=== PATIENT | female | born 1955 | race Caucasian/White ===

== ENCOUNTER 2016-10-29 08:05 | Outpatient (CLI) | payer BC | END 2016-10-29 17:53 | disposition home or self-care (01) | LOC: SUS 08:05 | PROVIDERS: ATTEND Internal Medicine | DX: M47.896 Other spondylosis, lumbar region (principal); N23 Unspecified renal colic | CPT/HCPCS: 72110; 76770 ==

== ENCOUNTER 2016-11-04 09:20 | Outpatient (CLI) | payer BC | END 2016-11-04 19:02 | disposition home or self-care (01) | LOC: SMA 09:20 | PROVIDERS: ATTEND Internal Medicine | DX: Z12.31 Encounter for screening mammogram for malignant neoplasm of breast (principal) | CPT/HCPCS: G0202 ==

== ENCOUNTER 2017-12-08 13:15 | Outpatient (CLI) | payer BC | END 2017-12-08 20:06 | disposition home or self-care (01) | LOC: SMA 13:15 | PROVIDERS: ATTEND Internal Medicine | DX: Z12.31 Encounter for screening mammogram for malignant neoplasm of breast (principal) | CPT/HCPCS: 77067 ==

== ENCOUNTER → 2019-12-02 | Outpatient (CLI) | payer BC | END | disposition home or self-care (01) | LOC: SMA 10:30 | PROVIDERS: ATTEND Internal Medicine | DX: Z12.31 Encounter for screening mammogram for malignant neoplasm of breast (principal) | CPT/HCPCS: 77067 ==

== ENCOUNTER 2021-03-12 08:56 | Outpatient (CLI) | payer BC | END 2021-03-12 19:55 | disposition home or self-care (01) | LOC: SMA 08:56 | PROVIDERS: ATTEND Internal Medicine | DX: Z12.31 Encounter for screening mammogram for malignant neoplasm of breast (principal) | CPT/HCPCS: 77067 ==

== ENCOUNTER 2022-06-11 08:11 | Outpatient (CLI) | payer OTHER, MEDICARE | END 2022-06-11 20:37 | disposition home or self-care (01) | LOC: SUS 08:11 | PROVIDERS: ATTEND Internal Medicine | DX: N20.0 Calculus of kidney (principal); K80.20 Calculus of gallbladder without cholecystitis without obstruction | CPT/HCPCS: 76700-TC ==

== ENCOUNTER 2023-04-17 10:41 | Outpatient (CLI) | payer OTHER, MEDICARE | END 2023-04-17 18:08 | disposition home or self-care (01) | LOC: SMA 10:41 | PROVIDERS: ATTEND Internal Medicine | DX: Z12.31 Encounter for screening mammogram for malignant neoplasm of breast (principal); S82.892A Other fracture of left lower leg, initial encounter for closed fracture; X58.XXXA Exposure to other specified factors, initial encounter; Y93.89 Activity, other specified; Y92.89 Other specified places as the place of occurrence of the external cause; Y99.8 Other external cause status | CPT/HCPCS: 77067 ==

== ENCOUNTER 2023-09-11 11:28 | Outpatient (CLI) | payer OTHER, MEDICARE | END 2023-09-11 18:06 | disposition home or self-care (01) | LOC: SRD 11:28 | PROVIDERS: ATTEND Internal Medicine | DX: J18.9 Pneumonia, unspecified organism (principal); M47.814 Spondylosis without myelopathy or radiculopathy, thoracic region | CPT/HCPCS: 71046 ==

== ENCOUNTER 2024-02-08 08:01 | Outpatient (CLI) | payer OTHER, MEDICARE | END 2024-02-08 20:09 | disposition home or self-care (01) | LOC: SUS 08:01 | PROVIDERS: ATTEND Student in an Organized Health Care Education/Training Program | DX: S89.92XA Unspecified injury of left lower leg, initial encounter (principal); M25.862 Other specified joint disorders, left knee; X58.XXXA Exposure to other specified factors, initial encounter; Y93.89 Activity, other specified; Y92.89 Other specified places as the place of occurrence of the external cause; Y99.8 Other external cause status ==